=== PATIENT | female | born 1960 | race Caucasian/White ===

== ENCOUNTER 2024-04-11 05:50 | Emergency (ER) | payer OTHER, SELFPAY ==
[2024-04-11] VITALS (10 sets, daily range): BP systolic 158–188; BP diastolic 77–94; PULSE 57–78; RESP 11–20; TEMP 36.6–36.7; O2SAT 92–98; BMI 27.4
[2024-04-11] MEDS: ONDANSETRON 4 MG/2 ML INJ IV (06:10)
--- NOTE | 2024-04-11 06:15 | DI.CT.S_ITS ---
PROCEDURE: CT ABDOMEN PELVIS W CON INDICATIONS: N/V/MIDEPIGASTRIC PAIN TECHNIQUE: After the administration of intravenous contrast, axial sections acquired from the lung bases to the pubic symphysis. Coronal and sagittal reformats were performed. For radiation dose reduction, the following was used: automated exposure control, adjustment of mA and/or kV according to patient size. COMPARISON: None. FINDINGS: Image quality: Diagnostic. Lower Chest: No significant findings. ABDOMEN: Liver: No solid mass. Gallbladder: The gallbladder is distended. There are multiple gallstones present. There is mild gallbladder wall thickening and suggestion of mild inflammatory change in the adjacent fat. Findings support a potential clinical diagnosis of acute cholecystitis. Biliary ducts: No biliary dilation. Pancreas: No ductal dilation. Spleen: Size is within normal limits. Adrenal Glands: No adrenal nodules. Kidneys and Ureters: No hydronephrosis. No solid mass. No complex renal cystic lesion which requires follow up. Stomach and Bowel: Normal colonic caliber, without significant wall thickening. Peritoneum: No abnormal intraperitoneal fluid. No free air. Ventral Wall: No significant ventral hernia. Abdominal Nodes: No retroperitoneal or mesenteric adenopathy by size criteria. Vessels: Aorta and inferior vena cava are normal in size. PELVIS: Pelvic Organs: Uterus is surgically absent. No adnexal masses.. Bladder: No bladder wall thickening, accounting for underdistention. Pelvic Nodes: No enlarged lymph nodes. Miscellaneous: No inguinal hernias are seen. Bones: No aggressive osseous abnormality. IMPRESSION: Question acute cholecystitis. Consider possible right upper quadrant ultrasound. Comment: Final report is concordant with preliminary interpretation provided by [facility]. Dictated by: Ean Pope M.D. on 04/11/2024 at 7:40 Approved by: Ean Pope M.D. on 04/11/2024 at 7:43
--- NOTE | 2024-04-11 06:15 | ED_ITS ---
HPI - Abdominal Pain <Nina Prakash MD - Last Filed: 04/13/24 14:48> General Chief Complaint: Abdominal Pain Stated Complaint: abd pain, vomiting, bloating Time Seen by Provider: 04/11/24 06:00 Source: patient and family Mode of arrival: Ambulatory History of Present Illness HPI narrative: 63-year-old female with no reported past medical history presents by private vehicle for midepigastric abdominal pain, nausea, vomiting, bloating sensation. Patient states that last night prior to going to bed she noticed heartburn and abdominal pain. Throughout the night she vomited 4 times, nonbloody, nonbilious. Patient had 2-3 bowel movements that she reported to be normal for her. This morning the pain was still present and so she decided to be seen for evaluation. Reports alcohol use 3-4 times per week. Previous surgical history of hysterectomy, denies other intra-abdominal surgeries. Related Data Previous Rx's Medication Instructions Recorded ondansetron 4 mg disintegrating 4 mg PO Q6H PRN nausea and 04/11/24 tablet vomiting #5 tabs tramadol 50 mg tablet 50 mg PO Q6H PRN pain #10 tabs 04/11/24 Patient History <Nina Prakash MD - Last Filed: 04/13/24 14:48> Social History Smoking Status: Never smoker Smoking Status: Never smoker alcohol intake frequency: a few times a week Alcohol type: wine Substance Use Type: does not use Exam <Nina Prakash MD - Last Filed: 04/13/24 14:48> Initial Vital Signs Initial Vital Signs: Vital Signs Temperature 98.1 F 04/11/24 06:04 Pulse Rate 78 04/11/24 06:04 Respiratory Rate 20 04/11/24 06:04 Blood Pressure 188/94 H 04/11/24 06:04 Pulse Oximetry 96 04/11/24 06:04 Oxygen Delivery Method Room Air 04/11/24 06:04 Const: Awake, alert, no acute distress, nontoxic appearing Cardiac: regular rate, regular rhythm RESP: unlabored, clear bilaterally, no wheezing GI: Soft, midepigastric tenderness to deep palpation without rebound or guarding Skin: Warm, Dry, intact, no rashes Neuro: AO x3, CN II-XII grossly intact, moves all extremities <Nina Santamaria DO - Last Filed: 04/11/24 08:57> Initial Vital Signs Initial Vital Signs: Vital Signs Temperature 98.1 F 04/11/24 06:04 Pulse Rate 78 04/11/24 06:04 Respiratory Rate 20 04/11/24 06:04 Blood Pressure 188/94 H 04/11/24 06:04 Pulse Oximetry 96 04/11/24 06:04 Oxygen Delivery Method Room Air 04/11/24 06:04 Course <Nina Prakash MD - Last Filed: 04/13/24 14:48> Orders Ordered: Discontinued Medications Sodium Chloride (Normal Saline 0.9%) 1,000 mls @ 1,000 mls/hr IV BOLUS ONE Stop: 04/11/24 07:13 Last Infusion: 04/11/24 08:31 Dose: Infused Documented By: Admin: 04/11/24 06:23 Dose: 1,000 mls/hr Documented By: DANIEL Morphine Sulfate (Morphine 4 Mg/Ml Inj) 4 mg IV NOW ONE Stop: 04/11/24 06:15 Last Admin: 04/11/24 06:23 Dose: 4 mg Documented By: DANIEL Ondansetron HCl (Ondansetron 4 Mg/2 Ml Inj) 4 mg IV NOW ONE Stop: 04/11/24 06:07 Last Admin: 04/11/24 06:10 Dose: 4 mg Documented By: DANIEL Ondansetron HCl (Ondansetron 4 Mg/2 Ml Inj) 4 mg IV NOW ONE Stop: 04/11/24 06:15 Last Admin: 04/11/24 06:25 Dose: Not Given Documented By: DANIEL Vital Signs Vital signs: Vital Signs - 8 hr 04/11/24 06:04 04/11/24 06:16 04/11/24 06:29 Temperature 98.1 F Pulse Rate 78 57 L 59 L Respiratory Rate 20 13 14 Blood Pressure 188/94 H Pulse Oximetry 96 98 97 Oxygen Delivery Method Room Air 04/11/24 06:29 04/11/24 06:30 04/11/24 07:05 Temperature Pulse Rate 58 L 74 Respiratory Rate 11 L Blood Pressure 158/78 H Pulse Oximetry 96 92 Oxygen Delivery Method 04/11/24 07:30 04/11/24 08:00 04/11/24 08:30 Temperature Pulse Rate 66 65 73 Respiratory Rate 16 17 14 Blood Pressure Pulse Oximetry 97 97 98 Oxygen Delivery Method 04/11/24 08:34 04/11/24 08:34 04/11/24 08:42 Temperature 97.9 F Pulse Rate 63 Respiratory Rate 13 Blood Pressure 168/77 H Pulse Oximetry 97 Oxygen Delivery Method <Nina Santamaria, - Last Filed: 04/11/24 08:57> Orders Ordered: Discontinued Medications Sodium Chloride (Normal Saline 0.9%) 1,000 mls @ 1,000 mls/hr IV BOLUS ONE Stop: 04/11/24 07:13 Last Infusion: 04/11/24 08:31 Dose: Infused Documented By: Admin: 04/11/24 06:23 Dose: 1,000 mls/hr Documented By: DANIEL Morphine Sulfate (Morphine 4 Mg/Ml Inj) 4 mg IV NOW ONE Stop: 04/11/24 06:15 Last Admin: 04/11/24 06:23 Dose: 4 mg Documented By: DANIEL Ondansetron HCl (Ondansetron 4 Mg/2 Ml Inj) 4 mg IV NOW ONE Stop: 04/11/24 06:07 Last Admin: 04/11/24 06:10 Dose: 4 mg Documented By: DANIEL Ondansetron HCl (Ondansetron 4 Mg/2 Ml Inj) 4 mg IV NOW ONE Stop: 04/11/24 06:15 Last Admin: 04/11/24 06:25 Dose: Not Given Documented By: DANIEL Vital Signs Vital signs: Vital Signs - 8 hr 04/11/24 06:04 04/11/24 06:16 04/11/24 06:29 Temperature 98.1 F Pulse Rate 78 57 L 59 L Respiratory Rate 20 13 14 Blood Pressure 188/94 H Pulse Oximetry 96 98 97 Oxygen Delivery Method Room Air 04/11/24 06:29 04/11/24 06:30 04/11/24 07:05 Temperature Pulse Rate 58 L 74 Respiratory Rate 11 L Blood Pressure 158/78 H Pulse Oximetry 96 92 Oxygen Delivery Method 04/11/24 07:30 04/11/24 08:00 04/11/24 08:30 Temperature Pulse Rate 66 65 73 Respiratory Rate 16 17 14 Blood Pressure Pulse Oximetry 97 97 98 Oxygen Delivery Method 04/11/24 08:34 04/11/24 08:34 04/11/24 08:42 Temperature 97.9 F Pulse Rate 63 Respiratory Rate 13 Blood Pressure 168/77 H Pulse Oximetry 97 Oxygen Delivery Method MDM - Abdominal Pain <Nina Prakash MD - Last Filed: 04/13/24 14:48> Lab Data 04/11/24 06:17 04/11/24 06:17 Labs: Lab Results 04/11/24 Range/Units 06:17 WBC 12.6 H (4.5-11.0) X10^3/uL RBC 4.47 (4.0-5.2) X10^6/uL Hgb 14.1 (12.0-16.0) g/dL Hct 41.1 (36-46) % MCV 92.0 (80-100) fL MCH 31.6 (26-34) PG MCHC 34.3 (30-36) % RDW 13.7 (11.6-14.8) % Plt Count 248 (150-400) X10^3/uL Neut % (Auto) 92.4 H (50-75) % Lymph % (Auto) 5.1 L (25-40) % [place] % (Auto) 2.3 L (3-14) % Eos % (Auto) 0.1 L (2-4) % Baso % (Auto) 0.1 (0-2) % Neut # (Auto) 69620 H (7310-3853) /uL Lymph # (Auto) 600 L (5009-7439) /uL [place] # (Auto) 300 (0-900) /uL Eos # (Auto) 0 (0-450) /uL Baso # (Auto) 0 (0-100) /uL Sodium 139 (137-145) mmol/L Potassium 3.8 (3.4-5.1) mmol/L Chloride 103 (98-107) mmol/L Carbon Dioxide 24 (22-32) mmol/L BUN 17 (7-17) mg/dL Creatinine 0.77 (0.52-1.04) mg/dL Estimated GFR > 60 (>60) mL/min BUN/Creatinine Ratio 22.1 H (6-22) Glucose 134 H (80-110) mg/dL Lactate 1.7 (0.7-2.1) mmol/L Calcium 9.8 (8.4-10.2) mg/dL Magnesium 1.9 (1.6-2.3) mg/dL Total Bilirubin 0.9 (0.2-1.3) mg/dL AST 28 (14-36) IU/L ALT 24 (<35) IU/L Alkaline Phosphatase 63 (38-126) U/L Total Creatine Kinase 60 (30-135) U/L Troponin I < 0.012 (0.01-0.034) ng/mL Total Protein 8.0 (6.3-8.2) g/dL Albumin 4.7 (3.5-5.0) g/dL Globulin 3.3 (1.7-4.1) g/dL Albumin/Globulin Ratio 1.4 (1.0-2.8) Lipase 105 (23-300) U/L MDM Narrative Medical decision making narrative: Well-appearing patient with abdominal pain and vomiting. Abdomen soft, generally tender in the upper quadrants of her abdomen. No peritoneal signs. Morphine, fluids, Zofran ordered. Labs and CT imaging ordered. Care of patient turned over to Dr. Santamaria at 0700 04/11/2024 : Patient signed out to myself by Dr. Prakash. Patient is seen and evaluated by myself. 63-year-old female no reported medical issues, prior hysterectomy. Denies any drug allergies. No tobacco, alcohol or recreational drugs. Patient states symptoms started about 2100 last night. Constant throughout the night without any relief. Patient not had similar issues in the past no fevers she did have some nausea and vomiting. States no radiation up to her chest does radiate a little bit over to the right and down both sides of her abdomen. Patient states no back or flank pain. She had several bowel movements but were not diarrheal or black or bloody. Patient states no urinary symptoms. On exam she is some mild right upper quadrant tenderness but states that the pain medication has been very helpful. She is nontender otherwise on her exam. Lungs and heart sounds are normal. Patient has received fluids, Zofran, morphine and states she feels improved. Labs show white count of 12.6 hemoglobin of 14 platelets of 248 predominance of neutrophils. Sodium, potassium chloride carbon dioxide are normal BUN 17 creatinine 0.77 glucose is 134 lactate 1.7 with a calcium of 9.8 Mag of 1.9 bilirubin LFTs are normal, CK is 60 with troponin less than 0.012. Lipase is 105. Chest x-ray, no acute cardiopulmonary identified. EKG shows sinus bradycardia with sinus rhythm RSR in V1 V2. No other acute ST changes appreciated. CT abdomen pelvis: Cholelithiasis and questionable gallbladder wall thickening, if clinical concern for acute cholecystitis recommend right upper quadrant ultrasound no evidence of colitis, diverticulitis, bowel obstruction obstructive uropathy or acute appendicitis. Patient's CT shows questionable gallbladder wall thickening she is mildly tender over the right quadrant she was though she states pain significantly better after pain medications. Labs are overall reassuring, onset of symptoms was at 9:00 p.m. so do not feel that troponin needs to be repeated. Discussed findings with patient plan for right upper quadrant ultrasound. Ultrasound right quadrant gallbladder is distended multiple mobile shadowing gallstones, wall is not thickened measuring 1.7 mm however poor pericholecystic fluid is present, no sonographic Morrow sign. Biliary ducts are not dilated visualized portions pancreas are normal no free fluid. On recheck patient is non-tender on examination. Reviewed her findings from today. Patient notes she would prefer to return home unless felt to need emergent surgery. Spoke with Dr. Ibrahim, general surgery: Reviewed all patient's findings from today can follow up outpatient. <Nina Santamaria, DO - Last Filed: 04/11/24 08:57> Lab Data Labs: Lab Results 04/11/24 Range/Units 06:17 WBC 12.6 H (4.5-11.0) X10^3/uL RBC 4.47 (4.0-5.2) X10^6/uL Hgb 14.1 (12.0-16.0) g/dL Hct 41.1 (36-46) % MCV 92.0 (80-100) fL MCH 31.6 (26-34) PG MCHC 34.3 (30-36) % RDW 13.7 (11.6-14.8) % Plt Count 248 (150-400) X10^3/uL Neut % (Auto) 92.4 H (50-75) % Lymph % (Auto) 5.1 L (25-40) % [place] % (Auto) 2.3 L (3-14) % Eos % (Auto) 0.1 L (2-4) % Baso % (Auto) 0.1 (0-2) % Neut # (Auto) 20083 H (4941-5856) /uL Lymph # (Auto) 600 L (5028-7049) /uL [place] # (Auto) 300 (0-900) /uL Eos # (Auto) 0 (0-450) /uL Baso # (Auto) 0 (0-100) /uL Sodium 139 (137-145) mmol/L Potassium 3.8 (3.4-5.1) mmol/L Chloride 103 (98-107) mmol/L Carbon Dioxide 24 (22-32) mmol/L BUN 17 (7-17) mg/dL Creatinine 0.77 (0.52-1.04) mg/dL Estimated GFR > 60 (>60) mL/min BUN/Creatinine Ratio 22.1 H (6-22) Glucose 134 H (80-110) mg/dL Lactate 1.7 (0.7-2.1) mmol/L Calcium 9.8 (8.4-10.2) mg/dL Magnesium 1.9 (1.6-2.3) mg/dL Total Bilirubin 0.9 (0.2-1.3) mg/dL AST 28 (14-36) IU/L ALT 24 (<35) IU/L Alkaline Phosphatase 63 (38-126) U/L Total Creatine Kinase 60 (30-135) U/L Troponin I < 0.012 (0.01-0.034) ng/mL Total Protein 8.0 (6.3-8.2) g/dL Albumin 4.7 (3.5-5.0) g/dL Globulin 3.3 (1.7-4.1) g/dL Albumin/Globulin Ratio 1.4 (1.0-2.8) Lipase 105 (23-300) U/L ECG Data Attestation: I personally reviewed and interpreted this ECG as follows: Prior ECG tracings: not available for review Interpretation: Sinus bradycardia with sinus arrhythmia rate of 56 SD 150 QRS of 90 QTC 449, no acute ST elevation depression. Patient has RSR in V1 V2. No prior EKGs for comparison. MDM Narrative Medical decision making narrative: 04/11/2024 : Patient signed out to myself by Dr. Prakash. Patient is seen and evaluated by myself. 63-year-old female no reported medical issues, prior hysterectomy. Denies any drug allergies. No tobacco, alcohol or recreational drugs. Patient states symptoms started about 2100 last night. Constant throughout the night without any relief. Patient not had similar issues in the past no fevers she did have some nausea and vomiting. States no radiation up to her chest does radiate a little bit over to the right and down both sides of her abdomen. Patient states no back or flank pain. She had several bowel movements but were not diarrheal or black or bloody. Patient states no urinary symptoms. On exam she is some mild right upper quadrant tenderness but states that the pain medication has been very helpful. She is nontender otherwise on her exam. Lungs and heart sounds are normal. Patient has received fluids, Zofran, morphine and states she feels improved. Labs show white count of 12.6 hemoglobin of 14 platelets of 248 predominance of neutrophils. Sodium, potassium chloride carbon dioxide are normal BUN 17 creatinine 0.77 glucose is 134 lactate 1.7 with a calcium of 9.8 Mag of 1.9 bilirubin LFTs are normal, CK is 60 with troponin less than 0.012. Lipase is 105. Chest x-ray, no acute cardiopulmonary identified. EKG shows sinus bradycardia with sinus rhythm RSR in V1 V2. No other acute ST changes appreciated. CT abdomen pelvis: Cholelithiasis and questionable gallbladder wall thickening, if clinical concern for acute cholecystitis recommend right upper quadrant ultrasound no evidence of colitis, diverticulitis, bowel obstruction obstructive uropathy or acute appendicitis. Patient's CT shows questionable gallbladder wall thickening she is mildly tender over the right quadrant she was though she states pain significantly better after pain medications. Labs are overall reassuring, onset of symptoms was at 9:00 p.m. so do not feel that troponin needs to be repeated. Discussed findings with patient plan for right upper quadrant ultrasound. Ultrasound right quadrant gallbladder is distended multiple mobile shadowing gallstones, wall is not thickened measuring 1.7 mm however poor pericholecystic fluid is present, no sonographic Morrow sign. Biliary ducts are not dilated visualized portions pancreas are normal no free fluid. On recheck patient is non-tender on examination. Reviewed her findings from today. Patient notes she would prefer to return home unless felt to need emergent surgery. Spoke with Dr. Ibrahim, general surgery: Reviewed all patient's findings from today can follow up outpatient. Discharge Plan Departure Patient Disposition: Home Clinical Impression: Cholelithiasis Instructions: DI for Gallstones Activity Restrictions/Additional Instructions: Your workup today shows some gallstones within the bladder, there is a small amount of fluid but no thickening of the wall. Follow-up with your physician or local general surgeon as you may need to have your gallbladder removed in the future if you develop recurrent symptoms. You can take Zofran 1 tablet every 6 hours as needed for nausea. You can take Tylenol and/or ibuprofen as needed for pain. A short course of narcotic pain medication is included. You can take 1-2 tablets every 6 hours as needed. This medication can make you sleepy do not drive, perform hazardous activities or make any major decisions while taking it. This medication will make you constipated please take a stool softener once to twice daily until stools are soft and regular. Prescription was printed. Please return for fevers, recurrent pain, persistent vomiting, new abdominal back or flank pain, black or bloody stools, lightheadedness or passing out or other new or concerning changes. Prescriptions: New ondansetron 4 mg tablet,disintegrating 4 mg PO Q6H PRN (Reason: nausea and vomiting) Qty: 5 0RF tramadol 50 mg tablet 50 mg PO Q6H PRN (Reason: pain) Qty: 10 0RF Referrals: Sherri Franco [Other] Stand Alone Forms: Patient Portal/API
--- NOTE | 2024-04-11 06:15 | DI.RAD.S_ITS ---
PROCEDURE: XR CHEST 1V INDICATIONS: midepigastric pain/burning chest pain TECHNIQUE: One view of the chest was acquired. COMPARISON: None. FINDINGS: Surgical changes and devices: None. Lungs and pleura: Lungs are clear. No pleural effusions or pneumothorax. Mediastinum: Mediastinal contours appear normal. Heart size is normal. Bones and chest wall: No suspicious bony lesions. Overlying soft tissues appear unremarkable. IMPRESSION: No acute cardiopulmonary abnormality is seen. Dictated by: Ean Pope M.D. on 04/11/2024 at 8:19 Approved by: Ean Pope M.D. on 04/11/2024 at 8:19
--- NOTE | 2024-04-11 06:21 | EKG_ITS ---
[address] [address] Test Date: 2024-04-11 Pat Name: Bernie Ovalle Department: [facility] Room: Gender: Female Backbreaker: VADIM : 1960 Requested By: Order Number: [id number] Reading MD: Obed Queen Measurements Intervals [place] Rate: 56 P: 70 TX: 150 QRS: 69 QRSD: 90 T: 57 QT: 466 QTc: 449 Interpretive Statements Sinus bradycardia with sinus arrhythmia RSR' or QR pattern in V1 suggests right ventricular conduction delay Electronically Signed On 04-11-2024 9:15:51 PDT by Obed Queen
[2024-04-11] MEDS: MORPHINE 4 MG/ML INJ IV (06:23)
[2024-04-11] MEDS: SODIUM CHLORIDE 0.9% 1,000 ML 1000 ML IV (06:23)
[2024-04-11 06:28] LABS: Add Manual Diff / Slide Review NO; Basophils Absolute Auto 0 /uL (0-100); Basophils Percent Auto 0.1 % (0-2); Eosinophils Absolute Auto 0 /uL (0-450); Eosinophils Percent Auto 0.1 % (2-4); Hematocrit 41.1 % (36-46); Hemoglobin 14.1 g/dL (12.0-16.0); Lymphocytes Absolute Auto 600 /uL (1100-4500); Lymphocytes Percent Auto 5.1 % (25-40); Mean Corpuscular HGB Conc 34.3 % (30-36); Mean Corpuscular Hemoglobin 31.6 PG (26-34); Monocytes Absolute Auto 300 /uL (0-900); Monocytes Percent Auto 2.3 % (3-14); Neutrophils Absolute Auto 11700 /uL (1500-7000); Neutrophils Percent Auto 92.4 % (50-75); Platelet Count 248 X10^3/uL (150-400); Red Blood Cell Count 4.47 X10^6/uL (4.0-5.2); Red Cell Distribution Width 13.7 % (11.6-14.8); White Blood Cell Count 12.6 X10^3/uL (4.5-11.0)
[2024-04-11 06:43] LABS: Creatine Kinase 60 U/L (30-135); Lactate (Lactic Acid) 1.7 mmol/L (0.7-2.1)
[2024-04-11 06:45] LABS: Alanine Aminotransferase 24 IU/L (<35); Albumin 4.7 g/dL (3.5-5.0); Albumin Globulin Ratio 1.4 (1.0-2.8); Alkaline Phosphatase 63 U/L (38-126); Aspartate Aminotransferase 28 IU/L (14-36); BUN Creatinine Ratio 22.1 (6-22); Bilirubin Total 0.9 mg/dL (0.2-1.3); Blood Urea Nitrogen 17 mg/dL (7-17); Calcium 9.8 mg/dL (8.4-10.2); Carbon Dioxide 24 mmol/L (22-32); Chloride 103 mmol/L (98-107); Estimated Glomerular Filt Rate > 60 mL/min (>60); Globulin 3.3 g/dL (1.7-4.1); Glucose 134 mg/dL (80-110); HEMOLYSIS < 15 (0-50); Lipase 105 U/L (23-300); Magnesium 1.9 mg/dL (1.6-2.3); Potassium 3.8 mmol/L (3.4-5.1); Sodium 139 mmol/L (137-145)
[2024-04-11 06:56] LABS: Troponin I < 0.012 ng/mL (0.01-0.034)
--- NOTE | 2024-04-11 07:24 | DI.US.S_ITS ---
PROCEDURE: US ABDOMEN LIMITED INDICATIONS: EPIGASTRIC PAIN. ?GALLBLADDER THICKENING ON CT TECHNIQUE: Real-time scanning was performed of the abdominal and retroperitoneal organs, with image documentation. COMPARISON: [facility], CT, CT ABDOMEN PELVIS W CON, 04/11/2024, 7:00. FINDINGS: Liver: Liver is normal in size and homogeneous in echotexture. Gallbladder: Gallbladder is distended and has multiple mobile shadowing gallstones. The gallbladder wall is not thickened, measuring 1.7 mm. However, there is pericholecystic fluid. There is no sonographic Morrow sign. Biliary ducts: Intrahepatic bile ducts are non-dilated. Extrahepatic bile duct caliber measures 6.3 mm. Normal is 6-7 mm or less in diameter, or 10 mm or less post-cholecystectomy. Pancreas: Visualized portions of the pancreas are sonographically normal. Miscellaneous: No free abdominal fluid. IMPRESSION: Findings potentially represent acute cholecystitis. This is not definite. There is no pain on examination and there is no gallbladder wall thickening. However, the gallbladder is distended with multiple stones and pericholecystic fluid. Recommend clinical correlation. Nuclear medicine HIDA study may be helpful. Dictated by: Ean Pope M.D. on 04/11/2024 at 8:19 Approved by: Ean Pope M.D. on 04/11/2024 at 8:22
== END 2024-04-11 08:51 | disposition home or self-care (01) ==
PROVIDERS: Emergency Medicine; Emergency Provider Emergency Medicine
DX: K80.20 Calculus of gallbladder without cholecystitis without obstruction (principal); R00.1 Bradycardia, unspecified; R11.2 Nausea with vomiting, unspecified
CPT/HCPCS: 36415; 71045; 74177; 76705; 80053; 82550; 83605; 83690; 83735; 84484; 85025; 93005; 96361; 96374; 96375; 99284; J2270; J2405; Q9967